=== PATIENT | female | born 1980 | race Caucasian/White ===

== ENCOUNTER 2022-03-14 18:07 | Emergency (ER) | payer MEDICAID ==
[2022-03-14 20:59] LABS: ESTIMATED GFR 111 mL/min (>60)
[2022-03-14] MEDS ORDERED: LORazepam 1 MG Tab PO ONE (23:58)
[2022-03-15] MEDS ORDERED: Lisinopril 10 MG Tab PO ONE (08:19)
[2022-03-15] MEDS ORDERED: Venlafaxine 37.5 MG Cap.ER PO ONE (08:19)
[2022-03-15] MEDS ORDERED: busPIRone 10 MG Tab PO ONE (08:19)
== END 2022-03-15 09:25 | disposition left against medical advice (07) ==
LOC: JP.ED 18:07
DX: F91.9 Conduct disorder, unspecified (principal); Z20.822 Contact with and (suspected) exposure to COVID-19; Z79.899 Other long term (current) drug therapy
CPT/HCPCS: 36415; 80053; 80305; 80307; 81001; 84443; 85025; 87635; 99284; A9270; U0002